=== PATIENT | male | born 1970 | race Caucasian/White ===

== ENCOUNTER 2023-05-31 17:26 | Emergency (ER) | payer BC, SELFPAY ==
--- NOTE | ~2023-05-31 | CT_ITS ---
EXAMINATION: CT brain wo con DATE: 05/31/2023 23:10 INDICATION: vertigo/dizziness, N/V . TECHNIQUE: Computed tomography (CT) of the head was performed without intravenous contrast. The mA wa s adjusted according to patient size. Iterative reconstruction technique was employed. The dose-lengt h product was 605.33 mGy-cm. COMPARISON: None. FINDINGS: No acute intracranial hemorrhage or extra-axial fluid collection. No hydrocephalus, mass, or herniation. No acute ischemic infarct. Unremarkable dural venous sinus attenuation. No acute osseous abnormality. Small retention cysts/polyps in the bilateral maxillary sinuses, otherwise the aerated spaces are padma ar. IMPRESSION: No acute intracranial process. Reviewed, dictated and finalized at location K.
[2023-05-31 17:43] VITALS: BP 133/86; PULSE 64; RESP 18; TEMP 36.4; O2SAT 100
[2023-05-31 22:09] VITALS: BP 131/80; PULSE 69; RESP 20; O2SAT 99
--- NOTE | 2023-05-31 22:23 | ECG_ITS ---
Measurements Intervals [place] Rate: 59 P: -1 [place]: 196 QRS: 19 QRSD: 102 T: 22 QT: 439 QTc: 435 Interpretive Statements SINUS BRADYCARDIA BORDERLINE ECG COMPARISON TO PRIOR ECG 05-31-23 23:32 NO SIGNIFICANT CHANGES Electronically Signed On 06-01-2023 6:35:07 CDT by Samir Pritchard D.O.
--- NOTE | 2023-05-31 22:42 | ED.GENADULT ---
HPI - General Adult General Chief complaint: Syncope Stated complaint: nausea Time Seen by Provider: 05/31/23 22:09 Source: patient Mode of arrival: EMS Limitations: no limitations History of Present Illness HPI narrative: Patient is a 52-year-old male who presents to the ED via EMS with report of dizziness. Patient reports he has been dealing with allergies and intermittent pressure/fullness in his left ear. Today at work he began feeling dizzy, described as though the room was spinning. He attempted to drive home, but states dizziness became significantly worse. He pulled over to lay down in his car and called for EMS. Upon standing up to transfer over to the EMS stretcher, patient began profusely vomiting. He had several episodes of emesis. He notes that the dizziness was much worse with standing upright. He states dizziness is somewhat improved currently, but still aggravated with turning his head. Denies history of vertigo. Denies abdominal pain. No focal numbness or weakness. Denies vision changes, headache. Denies syncope. Denies chest pain or difficulty breathing. Denies any recent illness. Related Data Allergies Allergy/AdvReac Type Severity Reaction Status Date / Time No Known Allergies Allergy Verified 05/31/23 22:13 Review of Systems Review of Systems: CONSTITUTIONAL: Denies fever, chills, or sweats. EYES: Denies visual changes. ENT: See HPI. CARDIOVASCULAR: Denies chest pain. RESPIRATORY: Denies cough or dyspnea. GASTROINTESTINAL: Denies abdominal pain, nausea, vomiting. MUSCULOSKELETAL: Denies back pain, joint pain, or myalgia. NEUROLOGIC: See HPI. All systems reviewed & are unremarkable except as noted in HPI and below Exam Narrative: GENERAL: Well appearing, well-nourished, non-toxic, in no acute distress. HEAD: Normocephalic, atraumatic. EYES: PERRL/EOMI, conjunctivae clear bilaterally. Bilateral fatigable nystagmus, worse when looking to the right. NOSE: Normal, no drainage. EARS: TMS clear, with good light reflex. No erythema or bulging. No cerumen impaction. No significant fluid seen behind TMs. NECK: Supple. No adenopathy, no masses. No meningeal signs. RESPIRATORY: Airway patent, respirations nonlabored. Clear to auscultation bilaterally, no rales, rhonchi, wheezing. CARDIOVASCULAR: Regular rate and rhythm without murmurs, rubs, or gallops. Peripheral pulses 2+ and equal bilaterally. ABDOMINAL: Soft, no tenderness throughout abdomen, nondistended, no hepatosplenomegaly. Normoactive BS. MUSCULOSKELETAL: Moves all extremities. Strength/ROM intact without gross deformities. SKIN: Warm, dry, normal color. No rashes. NEURO: A&O X3. Speech clear. Follows commands. CN II-XII intact. Sensation grossly intact. Steady gait. No ataxic movements. Strength 5/5 in upper and lower extremities bilaterally. [id number]-bg-zvyc and qhygmz-le-nbex testing intact bilaterally. No pronator drift. Equal electrical maintenance supervisor strength bilaterally. PSYCHIATRIC: Appropriate mood and affect. Normal interaction. Course Vital Signs Vital signs: Vital Signs Temperature 97.6 F 05/31/23 17:43 Pulse Rate 64 05/31/23 17:43 Respiratory Rate 18 05/31/23 17:43 Blood Pressure 133/86 05/31/23 17:43 Pulse Oximetry 100 05/31/23 17:43 Oxygen Delivery Room Air 05/31/23 17:43 Temperature 97.6 F 05/31/23 17:43 Pulse Rate 61 06/01/23 01:54 Respiratory Rate 17 06/01/23 01:54 Blood Pressure 115/68 06/01/23 01:54 Pulse Oximetry 100 06/01/23 01:54 Oxygen Delivery Room Air 05/31/23 17:43 Medical Decision Making MDM Narrative Medical decision making narrative: Patient presented to ED with room spinning dizziness, nausea, vomiting. Dizziness worse with standing upright, turning head. Recent ear fullness/congestion. Vital stable upon arrival. Upon my evaluation, patient in no acute distress. Neurologically intact. No focal deficits appreciated on exam. Fluids and meclizine initiated. CT brain without a
[2023-05-31 23:00] LABS: Basophils Percent Auto 0.4 % (0.2-1.2); Hematocrit 43.5 % (42.0-52.0); Hemoglobin 14.8 g/dL (14.0-18.0); Immature Granulocyte Absolute 0.03 K/mm3 (0.00-0.031); Immature Granulocyte Percent A 0.3 % (0-0.5); Lymphocytes Absolute Auto 1.28 K/mm3 (0.9-3.2); Lymphocytes Percent Auto 13.3 % (18.3-44.2); Mean Corpuscular Hemoglobin 31.2 pg (26-34); Mean Corpuscular Volume 91.8 fl (80-100); Mean Platelet Volume 9.9 fl (7.4-10.4); Monocytes Absolute Auto 0.5 K/mm3 (0.1-0.6); Neutrophils Absolute Auto 7.8 K/mm3 (1.3-6.7); Platelet Count Result 291 k/mm3 (150-375); Red Blood Count 4.74 M/mm3 (4.6-6.20); Red Cell Distribution Width 12.3 % (11.5-14.5); White Blood Count 9.6 K/mm3 (4.5-10.0)
[2023-05-31 23:12] LABS: Alanine Aminotransferase 31 U/L (6-50); Albumin Level 4.8 g/dL (3.5-5.1); Alkaline Phosphatase 72 U/L (38-126); Anion Gap 11 mmol/L (8-16); Aspartate Amino Transferase 34 U/L (17-59); Bilirubin,Total 0.7 mg/dL (0.2-1.3); Blood Urea Nitrogen 13 mg/dL (9-20); Calcium 9.2 mg/dL (8.4-10.2); Carbon Dioxide 26 mmol/L (22-30); Chloride 103 mmol/L (98-107); Estimated CRCL calculation 106 ml/min; Estimated Glomerular Filt Rate > 60; Glucose 121 mg/dL (65-110); Potassium 4.2 mmol/L (3.4-5.0); Sodium 140 mmol/L (137-145)
[2023-05-31] MEDS: SODIUM CHLORIDE 0.9% IV 1,000 ML 999 ML IV CONT ×2 (23:19)
[2023-05-31] MEDS: ONDANSETRON INJ 4 MG/2 ML VIAL IV PUSH (23:19)
[2023-05-31] MEDS: MECLIZINE HCL 25 MG TABLET PO (23:19)
[2023-05-31 23:51] VITALS: BP 128/83; PULSE 63; RESP 15; O2SAT 100
[2023-06-01 01:54] VITALS: BP 115/68; PULSE 61; RESP 17; O2SAT 100
== END 2023-06-01 01:57 | disposition home or self-care (01) ==
PROVIDERS: Emergency Provider Physician Assistant
DX: H81.10 Benign paroxysmal vertigo, unspecified ear (principal); R11.2 Nausea with vomiting, unspecified
CPT/HCPCS: 36415; 70450; 80053; 85025; 93005; 96361; 96374; 99284; A9270; J2405; J7030